=== PATIENT | male | born 1955 | race African-American/Black ===

== ENCOUNTER 2022-09-10 11:12 | Emergency (ER) | payer OTHER, MEDICAID ==
[~2022-09-10] VITALS: Ht 172.7 cm; Wt 75.0 kg
[2022-09-10] MEDS ORDERED: MAGNESIUM/ALUMINUM HYDROXIDE/SIMETHICONE 30ML UDC PO STA (14:16)
[2022-09-10] MEDS ORDERED: DICYCLOMINE 10 MG/5 ML ORAL SYR PO STA (14:16)
[2022-09-10] MEDS ORDERED: VISCOUS LIDOCAINE 2% 15 ML UDC PO STA (14:16)
[2022-09-10] MEDS ORDERED: AZIT250T12 MT (14:53)
[2022-09-10] MEDS ORDERED: OMEP40CA20 MT (14:53)
[2022-09-10 15:15] VITALS: BP 103/78
== END 2022-09-10 15:17 | disposition home or self-care (01) ==
LOC: EDBD 11:12 → ER 11:12
DX: J18.9 Pneumonia, unspecified organism (principal); I10 Essential (primary) hypertension; E78.00 Pure hypercholesterolemia, unspecified; Z20.822 Contact with and (suspected) exposure to COVID-19
CPT/HCPCS: 71045; 87426; 99284; C9803

== ENCOUNTER 2023-03-15 05:49 | Inpatient (IN) | payer OTHER, MEDICAID ==
[~2023-03-15] VITALS: Ht 177.8 cm; Wt 68.9 kg
[~2023-03-15 05:49] MED LIST: OMEP40CA20 MT
[2023-03-15 06:50] LABS: HEMATOCRIT. 30.5 % (42.0-52.0); HEMOGLOBIN. 10.4 g/dL (14.0-18.0); MEAN CORPUSCULAR HEMOGLOBIN 30.6 pg (28.0-32.0); MEAN CORPUSCULAR HGB CONC 33.9 g/dL (31.0-37.0); MEAN CORPUSCULAR VOLUME 90.4 fL (80.0-94.0); MEAN PLATELET VOLUME 7.7 fl (7.4-10.4); PLATELET 301 x1000/uL (130-400); RED BLOOD CELL COUNT 3.38 mill/uL (4.7-6.1); RED CELL DISTRIBUTION WIDTH 19.1 % (11.6-14.6); WHITE BLOOD COUNT 7.6 x1000/uL (4.5-11.0)
[2023-03-15 07:01] LABS: DIFFERENTIAL COMMENT 1
[2023-03-15 07:07] LABS: CHLORIDE 110 mEq/L (98-107); INDEX HEMOLYSI 2 (1-3); INDEX ICTERIC 4 (1-4); INDEX LIPEMIC 1 (1-3); POTASSIUM 3.5 mEq/L (3.5-5.1); SODIUM 136 mEq/L (136-145)
[2023-03-15 07:14] LABS: ALANINE AMINOTRANSFERASE 205 IU/L (13-61); ALBUMIN 2.6 g/dL (3.4-5.0); ASPARTATE AMINOTRANSFERASE 117 IU/L (15-37); BILIRUBIN TOTAL 13.2 mg/dL (0.1-1.0); CALCIUM 8.7 mg/dL (8.5-10.1); CARBON DIOXIDE 22 mEq/L (21-32); CREATININE 0.7 mg/dL (0.6-1.3); GLUCOSE 210 mg/dL (70-105); PROTEIN TOTAL 6.7 g/dL (6.0-8.3); UREA NITROGEN BLOOD 12 mg/dL (7-21)
[2023-03-15 07:57] LABS: PLATELET ESTIMATE NORMAL
[2023-03-15 08:00] LABS: CLARITY URINE CLOUDY (CLEAR); COLOR URINE DARK YELLOW (YELLOW); GLUCOSE URINE TRACE (NEGATIVE); KETONES URINE NEGATIVE (NEGATIVE); LEUKOCYTE ESTERASE URINE TRACE (NEGATIVE); NITRITE URINE NEGATIVE (NEGATIVE); OCCULT BLOOD URINE NEGATIVE (NEGATIVE); PROTEIN URINE 1+ (NEGATIVE); SPECIFIC GRAVITY URINE 1.021 (1.005-1.030); UROBILINOGEN URINE 0.2 E.U./dL (0.2-1.0)
[2023-03-15 08:03] LABS: SQUAMOUS EPITHELIAL CELL URINE NONE SEEN /lpf (RARE/1+); YEAST URINE NONE SEEN
[2023-03-15 08:09] LABS: CALCIUM OXALATE CRYSTALS URINE 1+ /lpf
[2023-03-15 08:12] LABS: BACTERIA URINE 2+; RBC URINE 0-2 /hpf (0-2)
[2023-03-15] MEDS ORDERED: MORPHINE SULFATE 4 MG/ML CPJ (NOT FOR IM USE) IV ONE (10:45)
[2023-03-15] MEDS ORDERED: SODIUM CHLORIDE 0.45% 1,000 ML IV ONE (10:45)
[2023-03-15] MEDS ORDERED: MAGNESIUM/ALUMINUM HYDROXIDE/SIMETHICONE 30ML UDC PO ONE (11:00)
[2023-03-15] MEDS ORDERED: ONDANSETRON HCL 4MG/2ML INJ IV PRN (13:30)
[2023-03-15] MEDS ORDERED: NA PHOS,M-B/NA PHOS,DI-BA ENEMA 118ML PR NR (13:30)
[2023-03-15] MEDS ORDERED: IPRATROPIUM/ALBUTEROL 0.5-3(2.5)MG/3ML NEB HHN PRN (13:30)
[2023-03-15] MEDS ORDERED: DEXTROSE 50% WATER 50ML SYRINGE IV PRN (13:30)
[2023-03-15] MEDS ORDERED: CEFTRIAXONE 1GM PREMIX 50 ML IV SCH (13:30)
[2023-03-15] MEDS: PANTOPRAZOLE SODIUM 40 MG/VIAL IV SCH (15:44)
[2023-03-15] MEDS: BLOOD SUGAR DIAGNOSTIC STRIP TEST SCH ×2 (17:00→21:04)
[2023-03-15] MEDS: INSULIN LISPRO 100 UNITS/ML SUBCUT SCH ×2 (18:10→21:00)
[2023-03-15 18:15] VITALS: BP 146/64; PULSE 90; RESP 16; TEMP 99.1
[2023-03-15] MEDS ORDERED: NALOXONE HCL 0.4MG/ML VIAL IV PRN (18:30)
[2023-03-15] MEDS: MORPHINE SULFATE 2 MG/ML CPJ (NOT FOR IM USE) IV PRN ×2 (18:45→23:31)
[2023-03-15 20:00] VITALS: BP_SYST 135; BP_SYST 141; BP_DIAS 62; BP_DIAS 75; PULSE 103; PULSE 82; RESP 18; RESP 19; TEMP 97.3; TEMP 97.5
[2023-03-16] VITALS: BP 152/75; PULSE 92; RESP 18; TEMP 97.6
[2023-03-16] MEDS: MORPHINE SULFATE 2 MG/ML CPJ (NOT FOR IM USE) IV PRN ×5 (03:16→21:10)
[2023-03-16 04:00] VITALS: BP 135/75; PULSE 79; RESP 19; TEMP 98.3
[2023-03-16] MEDS: SODIUM CHLORIDE 0.9% 1,000 ML IV SCH (05:58)
[2023-03-16] MEDS: BLOOD SUGAR DIAGNOSTIC STRIP TEST SCH ×4 (06:10→21:04)
[2023-03-16 06:14] LABS: BASOPHILS % 0.3 % (0.0-2.0); EOSINOPHILS % 1.1 % (0.0-5.0); HEMATOCRIT. 28.6 % (42.0-52.0); LYMPHOCYTES % 17.7 % (20.0-50.0); MEAN CORPUSCULAR HEMOGLOBIN 31.5 pg (28.0-32.0); MEAN CORPUSCULAR HGB CONC 34.8 g/dL (31.0-37.0); MEAN CORPUSCULAR VOLUME 90.5 fL (80.0-94.0); MEAN PLATELET VOLUME 7.7 fl (7.4-10.4); MONOCYTES % 12.8 % (2.0-8.0); NEUTROPHILS % 68.1 % (40.0-76.0); PLATELET 278 x1000/uL (130-400); RED BLOOD CELL COUNT 3.16 mill/uL (4.7-6.1); RED CELL DISTRIBUTION WIDTH 19.1 % (11.6-14.6); WHITE BLOOD COUNT 6.5 x1000/uL (4.5-11.0)
[2023-03-16 07:01] LABS: CHLORIDE 106 mEq/L (98-107); INDEX HEMOLYSI 1 (1-3); INDEX ICTERIC 4 (1-4); INDEX LIPEMIC 1 (1-3); POTASSIUM 3.3 mEq/L (3.5-5.1); SODIUM 136 mEq/L (136-145)
[2023-03-16 07:15] LABS: ALANINE AMINOTRANSFERASE 180 IU/L (13-61); ALBUMIN 2.3 g/dL (3.4-5.0); ASPARTATE AMINOTRANSFERASE 124 IU/L (15-37); BILIRUBIN TOTAL 13.2 mg/dL (0.1-1.0); CALCIUM 8.6 mg/dL (8.5-10.1); CARBON DIOXIDE 24 mEq/L (21-32); CHOLESTEROL 110 mg/dL (<200); CREATININE 0.6 mg/dL (0.6-1.3); GLUCOSE 86 mg/dL (70-105); HDL CHOLESTEROL 9 mg/dL (40-59); IRON 25 ug/dL (50-175); LDL CHOLESTEROL 98 mg/dL (5-100); PROTEIN TOTAL 5.9 g/dL (6.0-8.3); TOTAL IRON BINDING CAPACITY 266 ug/dL (250-450); TRIGLYCERIDE 139 mg/dL (0-150); UREA NITROGEN BLOOD 10 mg/dL (7-21)
[2023-03-16 07:18] LABS: BILIRUBIN DIRECT 10.7 mg/dL (0.0-0.2)
[2023-03-16 08:00] VITALS: BP 139/70; PULSE 73; RESP 18; TEMP 97.6
[2023-03-16] MEDS: INSULIN LISPRO 100 UNITS/ML SUBCUT SCH ×4 (08:10→21:00)
[2023-03-16] MEDS: PANTOPRAZOLE SODIUM 40 MG/VIAL IV SCH (08:40)
[2023-03-16] MEDS ORDERED: POTASSIUM CHLORIDE INJ 40 MEQ in DEXT 5% WATER 250 ML IV ONE (10:15)
[2023-03-16 11:01] LABS: INR 1.4; PROTHROMBIN TIME 14.8 sec (9.6-11.0)
[2023-03-16 12:00] VITALS: BP 135/64; PULSE 75; RESP 18; TEMP 98.1
[2023-03-16] MEDS: CEFTRIAXONE 1,000 MG in DEXTROSE 5% WATER 50 ML IV SCH (12:00)
[2023-03-16] MEDS: KCL 20MEQ/100ML X 2 FOR TOTAL KCL 40MEQ/200ML IV SCH ×2 (12:00→17:02)
[2023-03-16] MEDS: IRON SUCROSE COMPLEX 100 MG/5 ML ML IV SCH (12:00)
[2023-03-16 16:00] VITALS: BP 135/64; PULSE 75; RESP 18; TEMP 98.1
[2023-03-16 19:16] LABS: FERRITIN 134 ng/mL (22-322)
[2023-03-16 20:00] VITALS: BP 143/65; PULSE 70; RESP 20; TEMP 98.3
[2023-03-16 20:48] LABS: FOLIC ACID (FOLATE) SERUM >20 ng/mL ng/mL (>5.38); VITAMIN B12 SERUM 1651 pg/mL (211-911)
[2023-03-17] VITALS: BP 115/55; PULSE 77; RESP 19; TEMP 99.4
[2023-03-17] MEDS: MORPHINE SULFATE 2 MG/ML CPJ (NOT FOR IM USE) IV PRN ×5 (01:38→22:06)
[2023-03-17] MEDS: SODIUM CHLORIDE 0.9% 1,000 ML IV SCH (05:49)
[2023-03-17 06:10] VITALS: BP 122/52; PULSE 78; RESP 20; TEMP 98.5
[2023-03-17] MEDS: BLOOD SUGAR DIAGNOSTIC STRIP TEST SCH ×5 (07:40→21:53)
[2023-03-17 07:52] VITALS: BP 117/76; PULSE 86; RESP 20; TEMP 97.7
[2023-03-17] MEDS: INSULIN LISPRO 100 UNITS/ML SUBCUT SCH ×4 (07:53→21:45)
[2023-03-17 08:00] VITALS: BP 118/58; PULSE 78; RESP 20; TEMP 98.2
[2023-03-17] MEDS: PANTOPRAZOLE SODIUM 40 MG/VIAL IV SCH (08:15)
[2023-03-17] MEDS: IRON SUCROSE COMPLEX 100 MG/5 ML ML IV SCH (08:15)
[2023-03-17] MEDS ORDERED: LIDOCAINE HCL 1% 10 MG/ML 10ML VIAL ONE (08:34)
[2023-03-17] MEDS ORDERED: IOHEXOL-300 50 ML BOTTLE IV ONE ×2 (08:34)
[2023-03-17] MEDS ORDERED: PROPOFOL 200MG/20ML VIAL IV ONE ×2 (09:08→09:22)
[2023-03-17] MEDS ORDERED: MIDAZOLAM HCL 2 MG/2 ML VIAL ONE (09:09)
[2023-03-17] MEDS ORDERED: FENTANYL CITRATE/PF 50MCG/ML 2ML VIAL ONE (09:09)
[2023-03-17] MEDS ORDERED: ONDANSETRON HCL 4MG/2ML INJ IV PRN (09:45)
[2023-03-17] MEDS ORDERED: LABETALOL 5MG/ML SYR 20 MG/4 ML SYRINGE IV PRN (09:45)
[2023-03-17] MEDS ORDERED: MEPERIDINE HCL/PF 25MG/ML CPJ IV PRN (09:45)
[2023-03-17] MEDS: HYDROMORPHONE HCL/PF 2MG/ML CPJ IV PRN ×2 (10:42→10:59)
[2023-03-17] MEDS: CEFTRIAXONE 1,000 MG in DEXTROSE 5% WATER 50 ML IV SCH (14:00)
[2023-03-17 16:00] VITALS: BP 117/54; PULSE 89; RESP 20; TEMP 97.8
[2023-03-17 17:31] LABS: HEMATOCRIT. 31.2 % (42.0-52.0); HEMOGLOBIN. 10.7 g/dL (14.0-18.0); MEAN CORPUSCULAR HGB CONC 34.2 g/dL (31.0-37.0); MEAN CORPUSCULAR VOLUME 90.7 fL (80.0-94.0); MEAN PLATELET VOLUME 7.8 fl (7.4-10.4); PLATELET 337 x1000/uL (130-400); RED BLOOD CELL COUNT 3.44 mill/uL (4.7-6.1); WHITE BLOOD COUNT 8.4 x1000/uL (4.5-11.0)
[2023-03-17 17:36] LABS: DIFFERENTIAL COMMENT 1
[2023-03-17 17:48] LABS: CHLORIDE 107 mEq/L (98-107); INDEX HEMOLYSI 2 (1-3); INDEX ICTERIC 5 (1-4); INDEX LIPEMIC 1 (1-3); POTASSIUM 3.8 mEq/L (3.5-5.1); SODIUM 133 mEq/L (136-145)
[2023-03-17 18:06] LABS: ALANINE AMINOTRANSFERASE 317 IU/L (13-61); ALBUMIN 2.3 g/dL (3.4-5.0); ASPARTATE AMINOTRANSFERASE 388 IU/L (15-37); BILIRUBIN TOTAL 16.1 mg/dL (0.1-1.0); CALCIUM 8.5 mg/dL (8.5-10.1); CARBON DIOXIDE 22 mEq/L (21-32); CREATININE 0.8 mg/dL (0.6-1.3); GLUCOSE 176 mg/dL (70-105); PROTEIN TOTAL 6.3 g/dL (6.0-8.3); UREA NITROGEN BLOOD 13 mg/dL (7-21)
[2023-03-17 18:17] LABS: BILIRUBIN DIRECT 12.8 mg/dL (0.0-0.2)
[2023-03-17 18:27] LABS: ANISOCYTOSIS 1+; PLATELET ESTIMATE NORMAL
[2023-03-17 20:00] VITALS: BP 131/67; PULSE 89; RESP 18; TEMP 98
[2023-03-18] VITALS (7 sets, daily range): BP systolic 97–152; BP diastolic 54–83; PULSE 71–82; RESP 18–20; TEMP 97.7–98.8
[2023-03-18] MEDS: MORPHINE SULFATE 2 MG/ML CPJ (NOT FOR IM USE) IV PRN ×5 (03:18→22:04)
[2023-03-18] MEDS: SODIUM CHLORIDE 0.9% 1,000 ML IV SCH ×2 (04:49→21:59)
[2023-03-18 07:58] LABS: CHLORIDE 107 mEq/L (98-107); INDEX HEMOLYSI 1 (1-3); INDEX ICTERIC 4 (1-4); INDEX LIPEMIC 1 (1-3); SODIUM 135 mEq/L (136-145)
[2023-03-18 08:03] LABS: CALCIUM 8.3 mg/dL (8.5-10.1); CARBON DIOXIDE 24 mEq/L (21-32); CREATININE 0.8 mg/dL (0.6-1.3); GLUCOSE 137 mg/dL (70-105); UREA NITROGEN BLOOD 12 mg/dL (7-21)
[2023-03-18] MEDS: PANTOPRAZOLE SODIUM 40 MG/VIAL IV SCH (08:12)
[2023-03-18] MEDS: IRON SUCROSE COMPLEX 100 MG/5 ML ML IV SCH (08:12)
[2023-03-18] MEDS: INSULIN LISPRO 100 UNITS/ML SUBCUT SCH ×4 (08:13→21:00)
[2023-03-18 09:17] LABS: HEMATOCRIT. 27.2 % (42.0-52.0); HEMOGLOBIN. 9.3 g/dL (14.0-18.0); MEAN CORPUSCULAR HEMOGLOBIN 31.2 pg (28.0-32.0); MEAN CORPUSCULAR HGB CONC 34.3 g/dL (31.0-37.0); MEAN CORPUSCULAR VOLUME 90.9 fL (80.0-94.0); MEAN PLATELET VOLUME 7.6 fl (7.4-10.4); PLATELET 299 x1000/uL (130-400); RED CELL DISTRIBUTION WIDTH 18.7 % (11.6-14.6); WHITE BLOOD COUNT 7.8 x1000/uL (4.5-11.0)
[2023-03-18 09:25] LABS: DIFFERENTIAL COMMENT 1
[2023-03-18] MEDS: BLOOD SUGAR DIAGNOSTIC STRIP TEST SCH ×3 (11:56→21:58)
[2023-03-18] MEDS: CEFTRIAXONE 1,000 MG in DEXTROSE 5% WATER 50 ML IV SCH (12:37)
[2023-03-18 14:51] LABS: ALBUMIN 2.1 g/dL (3.4-5.0); BILIRUBIN TOTAL 12.7 mg/dL (0.1-1.0); PROTEIN TOTAL 5.8 g/dL (6.0-8.3)
[2023-03-18 15:06] LABS: BILIRUBIN DIRECT 10.2 mg/dL (0.0-0.2)
[2023-03-19] VITALS: BP 124/70; PULSE 81; RESP 19; TEMP 98.5
[2023-03-19 04:00] VITALS: BP 121/67; PULSE 71; RESP 19; TEMP 97.5
[2023-03-19] MEDS: MORPHINE SULFATE 2 MG/ML CPJ (NOT FOR IM USE) IV PRN ×4 (05:00→23:04)
[2023-03-19 05:46] LABS: HEMATOCRIT. 25.6 % (42.0-52.0); HEMOGLOBIN. 8.9 g/dL (14.0-18.0); MEAN CORPUSCULAR HEMOGLOBIN 31.4 pg (28.0-32.0); MEAN CORPUSCULAR HGB CONC 34.8 g/dL (31.0-37.0); MEAN CORPUSCULAR VOLUME 90.3 fL (80.0-94.0); MEAN PLATELET VOLUME 7.7 fl (7.4-10.4); PLATELET 292 x1000/uL (130-400); RED BLOOD CELL COUNT 2.84 mill/uL (4.7-6.1); RED CELL DISTRIBUTION WIDTH 18.9 % (11.6-14.6)
[2023-03-19] MEDS: BLOOD SUGAR DIAGNOSTIC STRIP TEST SCH ×4 (06:06→21:24)
[2023-03-19] MEDS: INSULIN LISPRO 100 UNITS/ML SUBCUT SCH ×4 (06:06→21:00)
[2023-03-19 06:42] LABS: DIFFERENTIAL COMMENT 1
[2023-03-19 08:03] VITALS: BP 126/62; PULSE 62; RESP 18; TEMP 98.2
[2023-03-19] MEDS: PANTOPRAZOLE SODIUM 40 MG/VIAL IV SCH (09:28)
[2023-03-19 10:46] LABS: CHLORIDE 109 mEq/L (98-107); INDEX HEMOLYSI 1 (1-3); INDEX ICTERIC 3 (1-4); INDEX LIPEMIC 1 (1-3); POTASSIUM 3.6 mEq/L (3.5-5.1); SODIUM 138 mEq/L (136-145)
[2023-03-19 10:55] LABS: ALANINE AMINOTRANSFERASE 255 IU/L (13-61); ALBUMIN 2.1 g/dL (3.4-5.0); ASPARTATE AMINOTRANSFERASE 154 IU/L (15-37); BILIRUBIN TOTAL 7.2 mg/dL (0.1-1.0); CALCIUM 8.1 mg/dL (8.5-10.1); CARBON DIOXIDE 22 mEq/L (21-32); CREATININE 0.8 mg/dL (0.6-1.3); GLUCOSE 99 mg/dL (70-105); PROTEIN TOTAL 5.9 g/dL (6.0-8.3); UREA NITROGEN BLOOD 9 mg/dL (7-21)
[2023-03-19 11:55] VITALS: BP 141/72; PULSE 78; RESP 20; TEMP 97.5
[2023-03-19] MEDS: CEFTRIAXONE 1,000 MG in DEXTROSE 5% WATER 50 ML IV SCH (13:34)
[2023-03-19 15:38] VITALS: BP 148/62; PULSE 75; RESP 20; TEMP 97.8
[2023-03-19 16:49] LABS: PLATELET ESTIMATE NORMAL
[2023-03-19 17:21] LABS: PLATELET ESTIMATE NORMAL
[2023-03-19] MEDS: SODIUM CHLORIDE 0.9% 1,000 ML IV SCH (18:26)
[2023-03-19 20:00] VITALS: BP 119/68; PULSE 75; RESP 18; TEMP 99.9
[2023-03-20] VITALS: BP 117/66; PULSE 72; RESP 18; TEMP 98.1
[2023-03-20 04:00] VITALS: BP 125/75; PULSE 77; RESP 20; TEMP 99.5
[2023-03-20] MEDS: MORPHINE SULFATE 2 MG/ML CPJ (NOT FOR IM USE) IV PRN ×4 (05:03→17:40)
[2023-03-20] MEDS: BLOOD SUGAR DIAGNOSTIC STRIP TEST SCH ×4 (06:30→20:20)
[2023-03-20] MEDS: INSULIN LISPRO 100 UNITS/ML SUBCUT SCH ×4 (06:30→20:29)
[2023-03-20 07:54] LABS: HEMATOCRIT. 26.8 % (42.0-52.0); HEMOGLOBIN. 9.3 g/dL (14.0-18.0); MEAN CORPUSCULAR HEMOGLOBIN 31.8 pg (28.0-32.0); MEAN CORPUSCULAR HGB CONC 34.8 g/dL (31.0-37.0); MEAN CORPUSCULAR VOLUME 91.4 fL (80.0-94.0); MEAN PLATELET VOLUME 7.6 fl (7.4-10.4); PLATELET 308 x1000/uL (130-400); RED BLOOD CELL COUNT 2.93 mill/uL (4.7-6.1); RED CELL DISTRIBUTION WIDTH 18.7 % (11.6-14.6); WHITE BLOOD COUNT 7.1 x1000/uL (4.5-11.0)
[2023-03-20 08:00] VITALS: BP 134/73; PULSE 80; RESP 20; TEMP 96.6
[2023-03-20 08:01] LABS: DIFFERENTIAL COMMENT 1
[2023-03-20 08:47] LABS: CHLORIDE 105 mEq/L (98-107); INDEX HEMOLYSI 1 (1-3); INDEX ICTERIC 3 (1-4); INDEX LIPEMIC 1 (1-3); POTASSIUM 3.6 mEq/L (3.5-5.1); SODIUM 135 mEq/L (136-145)
[2023-03-20] MEDS: PANTOPRAZOLE SODIUM 40 MG/VIAL IV SCH (08:49)
[2023-03-20 09:02] LABS: ALANINE AMINOTRANSFERASE 201 IU/L (13-61); ALBUMIN 2.2 g/dL (3.4-5.0); ASPARTATE AMINOTRANSFERASE 89 IU/L (15-37); BILIRUBIN DIRECT 6.5 mg/dL (0.0-0.2); BILIRUBIN TOTAL 8.2 mg/dL (0.1-1.0); CALCIUM 8.8 mg/dL (8.5-10.1); CARBON DIOXIDE 24 mEq/L (21-32); CREATININE 0.6 mg/dL (0.6-1.3); GLUCOSE 110 mg/dL (70-105); PROTEIN TOTAL 6.1 g/dL (6.0-8.3); UREA NITROGEN BLOOD 11 mg/dL (7-21)
[2023-03-20 12:00] VITALS: BP 141/78; PULSE 80; RESP 20; TEMP 98.8
[2023-03-20] MEDS: CEFTRIAXONE 1,000 MG in DEXTROSE 5% WATER 50 ML IV SCH (12:17)
[2023-03-20] MEDS: SODIUM CHLORIDE 0.9% 1,000 ML IV SCH (13:26)
[2023-03-20 13:33] LABS: ANISOCYTOSIS 1+; PLATELET ESTIMATE NORMAL
[2023-03-20 16:00] VITALS: BP 151/64; PULSE 78; RESP 20; TEMP 97.9
[2023-03-20 19:54] VITALS: BP 138/66; PULSE 82; RESP 18; TEMP 97.9
[2023-03-20] MEDS: HYDROCODONE/ACETAMINOPHEN 5/325MG TABLET PO PRN (20:20)
[2023-03-21] VITALS: BP 120/60; PULSE 72; RESP 20; TEMP 99.1
[2023-03-21 04:00] VITALS: BP 149/59; PULSE 70; RESP 18; TEMP 98.1
[2023-03-21] MEDS: BLOOD SUGAR DIAGNOSTIC STRIP TEST SCH ×4 (07:40→20:45)
[2023-03-21] MEDS: INSULIN LISPRO 100 UNITS/ML SUBCUT SCH ×4 (07:41→20:45)
[2023-03-21] MEDS: PANTOPRAZOLE SODIUM 40 MG/VIAL IV SCH (08:50)
[2023-03-21] MEDS: HYDROCODONE/ACETAMINOPHEN 5/325MG TABLET PO PRN ×2 (08:51→16:23)
[2023-03-21] MEDS: SODIUM CHLORIDE 0.9% 1,000 ML IV SCH (08:51)
[2023-03-21 12:00] VITALS: BP 95/39; PULSE 64; RESP 16; TEMP 97.4
[2023-03-21 16:00] VITALS: BP 158/82; PULSE 70; RESP 18; TEMP 97.7
[2023-03-21 20:00] VITALS: BP 123/62; PULSE 74; RESP 18; TEMP 97.9
[2023-03-21] MEDS ORDERED: NALOXONE HCL 0.4MG/ML VIAL IV PRN (20:15)
[2023-03-22] VITALS: BP 122/63; PULSE 73; RESP 19; TEMP 97.6
[2023-03-22 04:21] VITALS: BP 123/82; PULSE 69; RESP 18; TEMP 98.3
[2023-03-22] MEDS: SODIUM CHLORIDE 0.9% 1,000 ML IV SCH (05:36)
[2023-03-22] MEDS: HYDROCODONE/ACETAMINOPHEN 5/325MG TABLET PO PRN ×2 (05:48→17:25)
[2023-03-22] MEDS: BLOOD SUGAR DIAGNOSTIC STRIP TEST SCH ×4 (06:52→20:51)
[2023-03-22] MEDS: INSULIN LISPRO 100 UNITS/ML SUBCUT SCH ×4 (07:11→20:51)
[2023-03-22 08:00] VITALS: BP 123/74; PULSE 70; RESP 20; TEMP 97
[2023-03-22] MEDS: PANTOPRAZOLE SODIUM 40 MG/VIAL IV SCH (09:46)
[2023-03-22 12:00] VITALS: BP 111/69; PULSE 64; RESP 16; TEMP 98.1
[2023-03-22 16:00] VITALS: BP 145/79; PULSE 72; RESP 20; TEMP 98.6
[2023-03-22 18:06] LABS: BASOPHILS % 0.4 % (0.0-2.0); EOSINOPHILS % 3.7 % (0.0-5.0); HEMATOCRIT. 29.3 % (42.0-52.0); HEMOGLOBIN. 9.8 g/dL (14.0-18.0); LYMPHOCYTES % 19.4 % (20.0-50.0); MEAN CORPUSCULAR HEMOGLOBIN 31.3 pg (28.0-32.0); MEAN CORPUSCULAR HGB CONC 33.3 g/dL (31.0-37.0); MEAN CORPUSCULAR VOLUME 93.9 fL (80.0-94.0); MEAN PLATELET VOLUME 7.4 fl (7.4-10.4); MONOCYTES % 11.1 % (2.0-8.0); NEUTROPHILS % 65.4 % (40.0-76.0); PLATELET 343 x1000/uL (130-400); RED BLOOD CELL COUNT 3.12 mill/uL (4.7-6.1); RED CELL DISTRIBUTION WIDTH 18.7 % (11.6-14.6); WHITE BLOOD COUNT 5.9 x1000/uL (4.5-11.0)
[2023-03-22 18:40] LABS: INDEX HEMOLYSI 1 (1-3); INDEX ICTERIC 3 (1-4); INDEX LIPEMIC 1 (1-3)
[2023-03-22 18:53] LABS: BILIRUBIN DIRECT 6.4 mg/dL (0.0-0.2); BILIRUBIN TOTAL 7.7 mg/dL (0.1-1.0); PROTEIN TOTAL 6.5 g/dL (6.0-8.3)
[2023-03-22 19:13] LABS: ALANINE AMINOTRANSFERASE 136 IU/L (13-61); ALBUMIN 2.2 g/dL (3.4-5.0); ASPARTATE AMINOTRANSFERASE 73 IU/L (15-37); CALCIUM 8.8 mg/dL (8.5-10.1); CARBON DIOXIDE 23 mEq/L (21-32); CHLORIDE 108 mEq/L (98-107); CREATININE 0.7 mg/dL (0.6-1.3); GLUCOSE 112 mg/dL (70-105); POTASSIUM 3.9 mEq/L (3.5-5.1); SODIUM 136 mEq/L (136-145); UREA NITROGEN BLOOD 9 mg/dL (7-21)
[2023-03-22 20:00] VITALS: BP 134/71; PULSE 71; RESP 18; TEMP 97.1
[2023-03-23] VITALS: BP 129/64; PULSE 74; RESP 19; TEMP 97.6
[2023-03-23] MEDS: SODIUM CHLORIDE 0.9% 1,000 ML IV SCH ×2 (01:30→21:30)
[2023-03-23 04:00] VITALS: BP 120/72; PULSE 74; RESP 18; TEMP 97.3
[2023-03-23] MEDS: HYDROCODONE/ACETAMINOPHEN 5/325MG TABLET PO PRN ×2 (05:40→17:50)
[2023-03-23] MEDS: BLOOD SUGAR DIAGNOSTIC STRIP TEST SCH ×4 (06:51→20:51)
[2023-03-23] MEDS: INSULIN LISPRO 100 UNITS/ML SUBCUT SCH ×4 (08:10→20:50)
[2023-03-23 08:50] VITALS: BP 142/99; PULSE 74; RESP 18; TEMP 97.9
[2023-03-23] MEDS: PANTOPRAZOLE SODIUM 40 MG/VIAL IV SCH (08:50)
[2023-03-23 11:33] LABS: BASOPHILS % 0.3 % (0.0-2.0); EOSINOPHILS % 2.8 % (0.0-5.0); HEMATOCRIT. 26.8 % (42.0-52.0); LYMPHOCYTES % 16.7 % (20.0-50.0); MEAN CORPUSCULAR HGB CONC 33.7 g/dL (31.0-37.0); MEAN CORPUSCULAR VOLUME 92.1 fL (80.0-94.0); MEAN PLATELET VOLUME 7.3 fl (7.4-10.4); MONOCYTES % 12.5 % (2.0-8.0); NEUTROPHILS % 67.7 % (40.0-76.0); PLATELET 327 x1000/uL (130-400); RED BLOOD CELL COUNT 2.91 mill/uL (4.7-6.1); RED CELL DISTRIBUTION WIDTH 18.5 % (11.6-14.6); WHITE BLOOD COUNT 5.6 x1000/uL (4.5-11.0)
[2023-03-23 11:42] LABS: CHLORIDE 109 mEq/L (98-107); INDEX HEMOLYSI 1 (1-3); INDEX ICTERIC 3 (1-4); INDEX LIPEMIC 1 (1-3); POTASSIUM 3.8 mEq/L (3.5-5.1); SODIUM 137 mEq/L (136-145)
[2023-03-23 11:45] VITALS: BP 155/76; PULSE 67; RESP 18; TEMP 97.5
[2023-03-23 11:56] LABS: ALANINE AMINOTRANSFERASE 120 IU/L (13-61); ALBUMIN 2.1 g/dL (3.4-5.0); ASPARTATE AMINOTRANSFERASE 67 IU/L (15-37); BILIRUBIN DIRECT 5.5 mg/dL (0.0-0.2); BILIRUBIN TOTAL 6.4 mg/dL (0.1-1.0); CALCIUM 8.3 mg/dL (8.5-10.1); CARBON DIOXIDE 23 mEq/L (21-32); CREATININE 0.7 mg/dL (0.6-1.3); GLUCOSE 141 mg/dL (70-105); UREA NITROGEN BLOOD 9 mg/dL (7-21)
[2023-03-23 16:00] VITALS: BP 153/74; PULSE 69; RESP 18; TEMP 97.1
[2023-03-23 20:27] VITALS: BP 135/65; PULSE 64; RESP 20; TEMP 97.9
[2023-03-24] VITALS: BP 104/53; PULSE 101; RESP 19; TEMP 98.5
[2023-03-24 00:36] VITALS: BP 140/78; PULSE 76; RESP 20; TEMP 97.6
[2023-03-24 04:00] VITALS: BP_SYST 105; BP_SYST 152; BP_DIAS 66; BP_DIAS 74; PULSE 72; PULSE 90; RESP 16; RESP 18; TEMP 97.2; TEMP 98.6
[2023-03-24] MEDS: BLOOD SUGAR DIAGNOSTIC STRIP TEST SCH (07:40)
[2023-03-24 08:00] VITALS: BP 128/71; PULSE 70; RESP 18; TEMP 96.9
[2023-03-24] MEDS: INSULIN LISPRO 100 UNITS/ML SUBCUT SCH (08:10)
[2023-03-24] MEDS: PANTOPRAZOLE SODIUM 40 MG/VIAL IV SCH (09:59)
[2023-03-24 12:33] VITALS: BP 134/76; PULSE 69; TEMP 97; O2SAT 100
== END 2023-03-24 13:05 | disposition home or self-care (01) | DRG 444 ==
LOC: ER 05:49 → EDBEDREQSVC 15:05 → EDBEDREQ 15:05 → EDBEDREQTM 15:05 → EDBEDREQSVC 15:37 → 7WST 18:08
PROVIDERS: ADMIT Internal Medicine; ATTEND Internal Medicine
PROC: 0F9930Z Drainage of Common Bile Duct with Drainage Device, Percutaneous Approach (ICD-10-PCS; principal; 2023-03-17)
DX: K83.1 Obstruction of bile duct (principal); K72.00 Acute and subacute hepatic failure without coma; K85.90 Acute pancreatitis without necrosis or infection, unspecified; K56.41 Fecal impaction; R74.8 Abnormal levels of other serum enzymes; R73.9 Hyperglycemia, unspecified; I10 Essential (primary) hypertension; D64.9 Anemia, unspecified; K82.8 Other specified diseases of gallbladder; E78.00 Pure hypercholesterolemia, unspecified; F17.210 Nicotine dependence, cigarettes, uncomplicated; Z85.72 Personal history of non-Hodgkin lymphomas
CPT/HCPCS: 36415; 47534; 80048; 80053; 80061; 80076; 81003; 82607; 82728; 82746; 82962; 83036; 83540; 83550; 83735; 84100; 85025; 87426; 93005; 99285; C1725; C1760; C1769; C9113; J0696; J1170; J1815; J2250; J2270; J2704; J3010; J3480; J3490; J7060; Q9967